=== PATIENT | male | born 1955 | race Two or more races ===

== ENCOUNTER 2020-05-08 11:49 | Inpatient (IN) | payer OTHER ==
[~2020-05-08] VITALS: Ht 165.1 cm; Wt 108.4 kg
--- NOTE | 2020-05-08 11:58 | NUR ---
EKG IN PROGRESS.
--- NOTE | 2020-05-08 12:10 | NUR ---
PLACED IN BED 8 FOR EVAL.
--- NOTE | 2020-05-08 12:18 | NUR ---
FIRST CONTACT WITH PT. ALERT. COOPERATIVE . TELE SHOWS S.T. STARTED LAST NIGHT AT MID NIGHT. DR. RAMIREZ AT BEDSIDE.
[2020-05-08 12:55] LABS: BASOPHIL % 0.3 % (0.2-1.5); PLATELET COUNT 275 x10^3mcL (152-348); RED CELL DISTRIBUTION WIDTH 12.8 % (12.1-16.2)
[2020-05-08 13:19] LABS: CALCIUM 8.6 mg/dL (8.5-10.1); CHLORIDE SERUM 106 mmol/L (98-107); CREATININE SERUM 0.9 mg/dL (0.7-1.3); GFR1 > 60 mL/min; GLUCOSE SERUM 181 mg/dL (74-106); POTASSIUM SERUM 4.1 mmol/L (3.5-5.1); SODIUM SERUM 141 mmol/L (136-145)
[2020-05-08 13:20] LABS: FREE T4 0.88 ng/dL (0.76-1.46); FREE THYROXINE INDEX 2.3 ug/dL (1.4-4.5); T4(THYROXINE) 6.5 ug/dL (4.7-13.3)
[2020-05-08 13:21] LABS: AMPHETAMINE QUAL UR NONE DETECTED (See below)
[2020-05-08 13:23] LABS: ALBUMIN 3.6 g/dL (3.4-5.0); ALKALINE PHOSPHATASE 64 U/L (46-116); ALT/SGPT 29 U/L (16-63); AST/SGOT 17 U/L (15-37); BILIRUBIN TOTAL 0.6 mg/dL (0.20-1.00); MAGNESIUM 2.1 mg/dL (1.8-2.4); TOTAL PROTEIN, SERUM 6.9 g/dL (6.4-8.2)
--- NOTE | 2020-05-08 13:57 | NUR ---
AWAKE, ALERT. SKIN DRY. HEART RATED CONTINUES TO FLUCTUATE. FROM 130 - 150 BPM.
--- NOTE | 2020-05-08 15:18 | NUR ---
INSFORMED PT OF IMPENDING ADMISSION TO TELE FLOOR.
[2020-05-08] MEDS ORDERED: METFORMIN HCL1000 M2 PO (15:27)
[2020-05-08] MEDS ORDERED: STEGLATRO15 MG PO (15:28)
[2020-05-08] MEDS ORDERED: DIA5 PO (15:30)
[2020-05-08] MEDS ORDERED: TENORMIN50 MG PO (15:30)
[2020-05-08] MEDS ORDERED: LIPITOR20 MG PO (15:31)
[2020-05-08 16:19] LABS: T3 TOTAL 1.22 ng/mL
--- NOTE | 2020-05-08 17:50 | NUR ---
PT WAS RECEIVED BY PRIMARY NURSE BOWEN VIA NINFA, CAME IN DUE TO IRREGULAR HEARTBEAT. PT SEEN SITTING ON THE EDGE OF THE BED EATING DINNER. AAOX4. DENIES HEADACHE/DIZZINESS. ABLE TO FOLLOW COMMANDS. NO SOB NOTED, LUNG SOUNDS CTA, O2 SAT=96%. DENIES CHEST PAIN/PRESSURE, SR ON THE MONITOR. DENIES ABDOMINAL DISCOMFORT. VOIDS. IV SITE PATENT AND INTACT. CALL LIGHT ON REACH. BED ON THE LOWEST POSITION.
[2020-05-08 18:16] VITALS: BP 156/60
[2020-05-08 18:22] VITALS: Ht 165.1 cm; Wt 108.4 kg
--- NOTE | 2020-05-08 19:26 | NUR ---
RECEIVED PT FROM DAY SHIFT NURSE. PT IS AWAKE IN BED. PT IS A/OX4, ABLE TO MAKE NEEDS KNOWN. PT SPEAKS FARSI. ON TELE #12 READING SR. NO C/O OF CHEST PAIN, WETZEL OR SOB. PULSES ARE PALPABLE ON ALL 4 EXTREMITIES. NO EDEMA NOTED. LUNG SOUNDS CLEAR UPON AUSCULTATION. O2 SAT OF 96% ON RA. RR EVEN AND UNLABORED. PT VOIDS IN URINAL. PT IS AMBULATORY. SKIN IS WARM, DI. IV LOCATED ON LFA, ON SALINE LOCK. IV IS PATENT, DI AND WORKING APPROPRIATELY. PT APPEARS CALM AND IS COOPERATIVE. CALL LIGHT W/IN REACH. BED LOCKED AND IN LOWEST POSITION. INFORMED PT TO USE CALL LIGHT NEEDED.
[2020-05-08 19:51] VITALS: BP 117/67
--- NOTE | 2020-05-08 20:12 | NUR ---
SPOKE WITH PTS DAUGHTER LAI REGARDING HOME MEDICATION. DAUGHTER CONFIRMED MEDICATION. PAGED IPMG AT THIS TIME FOR NEW ORDERS, WAITING FOR CALL BACK.
--- NOTE | 2020-05-08 22:07 | NUR ---
PT'S HOME MEDICATION FOUND IN ROOM. REMOVED MEDICATIONS FROM PT ROOM AND PLACED THEM IN PT CUBBIE. PT STATED HE TOOK ATENOLOL. WILL ADMINISTER PT MEDICATIONS PER MAY.
--- NOTE | 2020-05-09 00:15 | NUR ---
PT IS RESTING IN BED AT THIS MOMENT. NO C/O OF SOB, CHEST PAIN OR WETZEL. RR EVEN AND UNLABORED. O2 SAT OF 96% ON RA. ON TELE #12 READING SR. ATTEMPTED TO SPEAK W/ FARSI CONTAINER FINISHER, THERE WERE NO TRANSLATORS AVAILABLE AT THE MOMENT. CALL LIGHT W/IN REACH. BED LOCKED AND IN LOWEST POSITION.
[2020-05-09 05:50] VITALS: BP 118/70
--- NOTE | 2020-05-09 06:14 | NUR ---
PT IS RESTING IN BED AT THIS TIME. NO C/O OF SOB, WETZEL OR CHEST PAIN. RR EVEN AND UNLABORED. O2 SAT OF 98% ON RA. CALL LIGHT W/IN REACH. BED LOCKED AND IN LOWEST POSITION. PT NEEDS WERE MET THROUGHOUT SHIFT. WILL ENDORSE CARE TO ONCOMING NURSE.
[2020-05-09 06:57] LABS: PLATELET COUNT 253 x10^3mcL (152-348); RED CELL DISTRIBUTION WIDTH 12.9 % (12.1-16.2)
--- NOTE | 2020-05-09 07:30 | NUR ---
RECEIVED PT FROM NIGHT NURSE. PT AWAKE AND RESTING COMFORTABLY IN BED. AAOX4. SPEAKS FARSI, [employer]ED [employer]ACTICE NURSE USED FOR COMMUNICATION. HR 60 ON THE TELE MONITOR. SINUS RHYTHM. NO SIGNS OF ACUTE DISTRESS AT THIS TIME. WILL CONTINUE TO MONITOR.
[2020-05-09 07:39] LABS: CALCIUM 8.9 mg/dL (8.5-10.1); CARBON DIOXIDE 28.4 mmol/L (21-32); CHLORIDE SERUM 103 mmol/L (98-107); CREATININE SERUM 0.8 mg/dL (0.7-1.3); GFR1 > 60 mL/min; GLUCOSE SERUM 119 mg/dL (74-106); PHOSPHOROUS 4.1 mg/dL (2.5-4.9); POTASSIUM SERUM 4.4 mmol/L (3.5-5.1); SODIUM SERUM 140 mmol/L (136-145); TRIGLYCERIDES 107 mg/dL (<150)
[2020-05-09 07:46] LABS: CHOLESTEROL 94 mg/dL (<200); CHOLESTEROL/HDL RATIO 2.9; HDL CHOLESTEROL 32 mg/dL (40-60)
[2020-05-09 08:49] VITALS: BP 131/72
[2020-05-09 11:56] VITALS: BP 125/71
--- NOTE | 2020-05-09 12:42 | NUR ---
CONSISTENTLY DENIES CHEST PAIN AND PALPITATIONS.
[2020-05-09] MEDS ORDERED: ELIQUIS5 MG PO (17:20)
[2020-05-09 17:28] VITALS: BP 100/65
--- NOTE | 2020-05-09 18:12 | NUR ---
SPOKE WITH DAUGHTER ABOUT PT WANTING TO LEAVE AMA. DISCHARGE ORDER WAS PUT IN AROUND THE SAME TIME. PT WAS IN NSR AT TIME OF DC. NO PAIN OR ANY FORM OF ACUTE DISTRESS. ON ROOM AIR WITH SAO2 100%. VS ALL WNL. ESCORTED ON FOOT TO ENTRANCE/LOBBY FOR FAMILY DIRECTOR INTERNAL CONTROL.
== END 2020-05-09 18:03 | disposition home or self-care (01) | DRG 201 ==
LOC: ED 11:49 → DU 16:11 → EDBEDREQ 16:13 → DU 17:50
PROVIDERS: Emergency Medicine; ADMIT Hospitalist; ATTEND Hospitalist
DX: I48.0 Paroxysmal atrial fibrillation (principal); Z68.41 Body mass index [BMI] 40.0-44.9, adult; E11.9 Type 2 diabetes mellitus without complications; E78.00 Pure hypercholesterolemia, unspecified; I10 Essential (primary) hypertension; Z20.822 Contact with and (suspected) exposure to COVID-19; E66.9 Obesity, unspecified; Z71.3 Dietary counseling and surveillance
CPT/HCPCS: 82962; 83880; 84439; G0378; J7030